=== PATIENT | female | born 1990 | race Caucasian/White ===

== ENCOUNTER 2017-01-08 16:54 | Emergency (ER) | payer OTHER ==
[2017-01-08 17:22] VITALS: BP 101/75
--- NOTE | 2017-01-09 07:26 | ER ---
History was obtained from the patient. CHIEF COMPLAINT: Right lower quadrant pain for a week. Other complaints include right knee pain, chronic and intermittent. HISTORY OF PRESENT ILLNESS: The patient has had a dull right lower quadrant pain for about a week. It became worse today after doing some running. She did have some nausea with 1 episode of vomiting today. She has had no vaginal discharge. She has had no fever, chills, rashes, or diarrhea. She does have some chronic constipation. Other complaints include a tender right knee along the tibial plateau, intermittent. She is runner and sometimes it can be worse with the running. She denies any instability of the knee. So active problems today are right lower quadrant pain and right knee pain. ALLERGIES: NONE. CURRENT MEDICATIONS: None. She uses control including condoms and barrier-type methods. PAST MEDICAL HISTORY: Negative. SURGICAL HISTORY: Negative. FAMILY HISTORY: No pertinent family history. PAST SOCIAL HISTORY: She is a nonsmoker. She is an theater education teacher. PHYSICAL EXAMINATION: VITAL SIGNS: Upon admission, the patient is afebrile, temperature is 97.5, pulse is 72, blood pressure is 101/75. She is 100% saturated on room air. GENERAL: Well-developed, well-nourished, athletic young female, in no acute distress. HEAD AND FACE: Normocephalic without trauma. No palpable pain over the sinuses. EYES: EOMI. PERRLA. Conjunctivae and lids are normal. ENT: Nose is clear. Throat is clear. Ears have normal TMs bilaterally. NECK: Supple and symmetric. Trachea is midline. No masses. No thyromegaly. No bruits. PULMONARY: Lungs are clear. CARDIOVASCULAR: Regular rate and rhythm. No murmurs, rubs, or gallops. No S3, no S4. Chest is normal upon exam. ABDOMEN: Soft without mass. Bowel sounds x4. No organomegaly. There is some mild tenderness in the right lower quadrant. There is no suprapubic tenderness. LYMPHATICS: No lymphadenopathy present. MUSCULOSKELETAL: Her right knee is not hot. There is no effusion. There is no knee instability. There are no limitations in motion. There is negative drawer sign. Rest her joints show no limitations of motion. No effusion. No rheumatoid nodules. No CVA tenderness. No cord pain. 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 She does not have any nevi on her lips. No other rashes or sores are present. NEURO: Normal. Cranial nerves II through XII intact. No focal sensory motor or cerebellar deficits. PSYCHIATRIC: Behavior is normal. Memory is good. The patient is oriented x3. ASSESSMENT: Probable right ovarian cyst, right knee pain. PLAN: The patient will return if rash or fever develops or any vaginal discharge. She will be set up for an outpatient ultrasound as soon as possible. She had a negative urine HCG. Her UA was clean. If her ultrasound is negative, we will re-evaluate the patient. If the ultrasound is positive for cyst, she will follow up with Gynecology. With her right knee, I am going to ask the patient to use a knee sleeve p.r.n. She will also use [id number] Aleve up to 4 a day. She can also use Tylenol on a p.r.n. basis. In addition, she can use these medications for her right lower quadrant discomfort. VERN /[id number]
== END 2017-01-08 18:30 | disposition home or self-care (01) ==
LOC: LB.ED 16:54
DX: M25.561 Pain in right knee (principal); R10.31 Right lower quadrant pain
CPT/HCPCS: 81001; 81025; 99284